=== PATIENT | female | born 1975 ===

== ENCOUNTER 2018-05-01 14:52 | Inpatient (IN) | payer OTHER ==
[~2018-05-01] VITALS: Ht 160 cm; Wt 68.0 kg
[2018-05-12] MEDS ORDERED: PRISTIQ25 MG PO (14:03)
[2018-05-12] MEDS ORDERED: PRILOSEC OTC20 MG PO (14:04)
[2018-05-12] MEDS ORDERED: AMBIEN5 MG PO (14:04)
[2018-05-12] MEDS ORDERED: LIBRAX PO (14:05)
[2018-05-12] MEDS ORDERED: ACETAMINOPHEN500 M1 PO (14:05)
== END 2018-05-23 16:27 | disposition home or self-care (01) | DRG 331 ==
LOC: EDSTATUS 05-12 12:00 → ADM 05-12 12:00 → SURG 05-20 05:30 → O/R 05-20 05:30 → SURH 05-20 07:00 → SURG 05-20 13:51 → SURH 05-20 13:51 → SURG 05-23 16:27
PROVIDERS: Colon & Rectal Surgery
PROC: 0DJD8ZZ Inspection of Lower Intestinal Tract, Via Natural or Artificial Opening Endoscopic (ICD-10-PCS; 2018-05-20)
PROC: 0DTN4ZZ Resection of Sigmoid Colon, Percutaneous Endoscopic Approach (ICD-10-PCS; principal; 2018-05-20 07:00)
DX: K57.32 Diverticulitis of large intestine without perforation or abscess without bleeding (principal); F41.8 Other specified anxiety disorders; G47.09 Other insomnia

== ENCOUNTER 2019-06-05 07:24 | Day surgery (SDC) | payer OTHER ==
[~2019-06-05 07:24] MED LIST: ACETAMINOPHEN500 M1 PO; AMBIEN5 MG PO; LIBRAX PO; PRILOSEC OTC20 MG PO; PRISTIQ25 MG PO
== END 2019-06-05 13:05 | disposition home or self-care (01) ==
LOC: AMB-ENDOS 07:24
DX: K57.32 Diverticulitis of large intestine without perforation or abscess without bleeding (principal); K64.1 Second degree hemorrhoids